=== PATIENT | female | born 1990 | race Caucasian/White ===

== ENCOUNTER 2019-10-08 18:31 | Emergency (ER) | payer SELFPAY ==
--- NOTE | 2019-10-08 22:34 | Event Note ---
ED Screening Note Date of service: 10/08/19 Time: 22:30 ED Screening Note: 28 y/o female comes in stating she is preg and is currently being treated for UTI. Having pelvic pain and spotting 2 pads since 12pm. LMP 07/29/19. . 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 Further treatment and workup at subsequent clinical providers discretion. Patient/guardian urged not to elope from the ED as their condition may be serious if not clinically assessed and managed. Initial orders include:
[2019-10-08 22:46] VITALS: BP 131/75
[2019-10-08 23:33] LABS: Mean Corpuscular HGB Conc 34 % (30-34); Mean Corpuscular Volume 88 fl (79-97); Platelet Count 334 K/mm3 (140-440); Red Blood Count 4.67 M/mm3 (3.65-5.03); Red Cell Distribution Width 12.5 % (13.2-15.2)
--- NOTE | 2019-10-09 00:26 | Ultrasound Report ---
TRANSABDOMINAL AND TRANSVAGINAL OB PELVIC ULTRASOUND INDICATION / CLINICAL INFORMATION: Pelvic pain and spotting. COMPARISON: None available. FINDINGS: Transabdominal images demonstrate a normal uterus measuring 9.2 x 4.4 x 5.2 cm. The endometrial strip e measures 4.3 mm AP. Neither ovary is seen. Transvaginal images demonstrate a normal uterus with the endometrial stripe measuring 5.6 mm AP. I se e no evidence of an intrauterine gestational sac. The right ovary measures 2.2 x 1.6 x 2.3 cm and the left ovary 2.6 x 1.8 x 2.6 cm. There is a 1.5 cm simple cyst in the left ovary. There is no evidence of an extraovarian mass or free fluid. Normal blood flow is seen to both ovaries on Doppler exam. IMPRESSION: 1. No evidence of intrauterine or extrauterine . 2. 1.5 cm follicular cyst in the left ovary. Signer Name: Brian Patterson MD Signed: 10/09/2019 12:22 AM Workstation Name: [id number]
[2019-10-09 00:33] LABS: Bilirubin,Urine NEG (Negative); Blood,Urine LG (Negative); Color,Urine Yellow (Yellow); Mucus,Urine FEW /HPF; Protein,Urine <15 mg/dL mg/dL (Negative); Urobilinogen,Urine < 2.0 mg/dL (<2.0)
--- NOTE | 2019-10-09 01:34 | Emergency Department Report ---
ED Female HPI - General Chief complaint: Abdominal Pain Stated complaint: POSS UTI Time Seen by Provider: 10/08/19 22:29 Source: patient Mode of arrival: Ambulatory Limitations: No Limitations - History of Present Illness Initial comments: Patient is an 28-year-old female who is A0 and presented to the ED with acute onset persistent severe vaginal bleeding with suprapubic pain for the last 12 hours and having had up to 3 pads changed from the heavy vaginal bleeding. Patient had apparently been diagnosed with a positive urine and acute urinary tract infection about 5 days ago at an urgent care clinic, and is currently on oral antibiotics for UTI. Patient states that last menstrual cycle was over 3 months ago, and that she had been on control for a while before she stopped. Patient denies syncope, fever, chills, nausea, vomiting, diarrhea, dizziness, vaginal discharge or low back pain. MD Complaint: vaginal bleeding, pelvic pain -: Sudden, days(s) (2) Location: suprapubic, other (vaginal) Radiation: non-radiating Severity: severe Severity scale (0 -10): 8 Quality: cramping, sharp Consistency: constant Improves with: none Worsens with: none Are you Now?: Yes (yes, unknown gestational age) Last Menstrual Period: 07/10/19 EDC: 04/15/20 Associated Symptoms: denies other symptoms, vaginal bleeding, abdominal pain, dysuria. denies: vaginal discharge, nausea/vomiting, fever/chills, headaches, loss of appetite, hematuria, rash, seizure, shortness of breath, syncope, weakness - Related Data Sexually active: Yes : 2 Para: 1 A: 0 ED Review of Systems ROS: Stated complaint: POSS UTI Other details as noted in HPI Constitutional: denies: chills, fever Eyes: denies: eye pain, eye discharge, vision change ENT: denies: ear pain, throat pain Respiratory: denies: cough, shortness of breath, wheezing Cardiovascular: denies: chest pain, palpitations Endocrine: no symptoms reported Gastrointestinal: abdominal pain (suprapubic ), nausea. denies: vomiting, diarrhea, constipation, hematemesis, melena, hematochezia Genitourinary: urgency, dysuria, frequency, hematuria, abnormal menses (vaginal bleeding). denies: discharge Musculoskeletal: denies: back pain, joint swelling, arthralgia Skin: denies: rash, lesions Neurological: denies: headache, weakness, paresthesias Psychiatric: denies: anxiety, depression Hematological/Lymphatic: denies: easy bleeding, easy bruising ED Past Medical Hx - Social History Smoking Status: Former Smoker Substance Use Type: None ED Physical Exam - General Limitations: No Limitations General appearance: alert, in no apparent distress - Head Head exam: Present: atraumatic, normocephalic, normal inspection - Eye Eye exam: Present: normal appearance, PERRL, EOMI - ENT ENT exam: Present: normal exam, normal orophraynx, mucous membranes moist, TM's normal bilaterally, normal external ear exam - Neck Neck exam: Present: normal inspection, full ROM - Respiratory Respiratory exam: Present: normal lung sounds bilaterally. Absent: respiratory distress, wheezes, rhonchi, chest wall tenderness, decreased breath sounds - Cardiovascular Cardiovascular Exam: Present: regular rate, normal rhythm, normal heart sounds. Absent: systolic murmur, diastolic murmur, rubs, gallop - GI/Abdominal GI/Abdominal exam: Present: soft, tenderness (mildly tender suprapubic area), normal bowel sounds. Absent: guarding, rebound, hyperactive bowel sounds, hypoactive bowel sounds - Bi-manual exam: Present: other (pelvic exam deferred) - Extremities Exam Extremities exam: Present: normal inspection, full ROM, normal capillary refill - Back Exam Back exam: Present: normal inspection, full ROM. Absent: tenderness, CVA tenderness (L), muscle spasm, paraspinal tenderness - Neurological Exam Neurological exam: Present: alert, oriented X3, CN II-XII intact, normal gait, reflexes normal - Psychiatric Psychiatric exam: Present: normal affect, normal mood - Skin Skin exam: Present: warm, dry, intact, normal color. Absent: rash ED Course Vital Signs 10/08/19 22:31 Temperature 97.4 F L Pulse Rate 83 Respiratory 19 Rate Blood Pressure 131/75 O2 Sat by Pulse 98 Oximetry ED Medical Decision Making - Lab Data Result diagrams: 10/08/19 23:11 - Radiology Data Radiology results: report reviewed, image reviewed Findings [facility] [address] [place] [address] Ultrasound Report Signed Patient: SOLANGE MCCOY MR#: [id number] : 1990 Acct:[id number] Age/Sex: 28 / F ADM Date: 10/08/19 Loc: ED Attending Dr: Ordering Physician: EPIFANIO RAMIREZ Date of Service: 10/08/19 Procedure(s): OB transvaginal Accession Number(s): [id number] cc: EPIFANIO RAMIREZ TRANSABDOMINAL AND TRANSVAGINAL OB PELVIC ULTRASOUND INDICATION / CLINICAL INFORMATION: Pelvic pain and spotting. COMPARISON: None available. FINDINGS: Transabdominal images demonstrate a normal uterus measuring 9.2 x 4.4 x 5.2 cm. The endometrial stripe measures 4.3 mm AP. Neither ovary is seen. Transvaginal images demonstrate a normal uterus with the endometrial stripe measuring 5.6 mm AP. I see no evidence of an intrauterine gestational sac. The right ovary measures 2.2 x 1.6 x 2.3 cm and the left ovary 2.6 x 1.8 x 2.6 cm. There is a 1.5 cm simple cyst in the left ovary. There is no evidence of an extraovarian mass or free fluid. Normal blood flow is seen to both ovaries on Doppler exam. IMPRESSION: 1. No evidence of intrauterine or extrauterine . 2. 1.5 cm follicular cyst in the left ovary. Signer Name: Brian Patterson MD Signed: 10/09/2019 12:22 AM Workstation Name: [id number] Transcribed By: RT Dictated By: Brian Patterson MD Electronically Authenticated By: Brian Patterson MD Signed Date/Time: 10/09/19 0022 - Medical Decision Making This is an 28-year-old female who is A0 and presented to the ED with acute onset persistent severe vaginal bleeding with suprapubic pain for the last 12 hours and having had up to 3 pads changed from the heavy vaginal b leeding. Patient had apparently been diagnosed with a positive urine and acute urinary tract infection about 5 days ago at an urgent care clinic, and is currently on oral antibiotics for UTI. Patient states that last menstrual cycle was over 3 months ago, and that she had been on control for a while before she stopped. In the ED, patient is alert and oriented 3 and is not in distress. Transvaginal ultrasound shows no evidence of intrauterine or extrauterine , but a 1.5 cm follicular cyst in the left ovary. Lab test results were reviewed and are all non-actionable, and they admit that hCG Quant was 2.48, essentially showing that the patient was non. Patient was discharged home and advised to take regular ibuprofen or Tylenol [id number] for pain and to continue to take the previously prescribed oral antibiotics for UTI to completion. Patient was advised to follow-up with her primary care physician in 5-7 days for reevaluation or return to the ED immediately if her symptoms get worse. - Differential Diagnosis Threatened miscarriage; UTI; Ovarian cyst; Metrorrhagia Critical care attestation.: If time is entered above; I have spent that time in minutes in the direct care of this critically ill patient, excluding procedure time. ED Disposition Clinical Impression: Dysmenorrhea, Acute pelvic pain, female, Metrorrhagia Disposition: TO HOME OR SELFCARE Is pt being admited?: No Does the pt Need Aspirin: No Condition: Stable Instructions: Abdominal Pain (ED), Dysmenorrhea (ED), Menstruation (ED) Additional Instructions: Los resultados del anlisis de katelyn para el embarazo son negativos. La ecografa transvaginal no mostr evidencia de embarazo intrauterino. Los resultados de otras pruebas de laboratorio fueron normales y no muestran anormalidades agudas. Contine tomando los antibiticos orales previamente recetados y jamila un seguimiento con ott mdico de atencin primaria en 5-7 finch para la reevaluacin. Regrese al departamento de emergencias de inmediato si los sntomas empeoran. Referrals: [facility] [Outside] - 7-10 days Time of Disposition: 01:32 Print Language: MALAGASY
== END 2019-10-09 01:52 | disposition home or self-care (01) ==
LOC: ED 18:31
DX: N94.6 Dysmenorrhea, unspecified (principal); N92.1 Excessive and frequent menstruation with irregular cycle; Z87.891 Personal history of nicotine dependence
CPT/HCPCS: 36415; 76801; 76817; 81001; 84702; 85027; 86850; 86900; 86901